=== PATIENT | male | born 1955 | race Two or more races ===

== ENCOUNTER 2022-02-02 06:20 | Day surgery (SDC) | payer OTHER ==
[~2022-02-02] VITALS: Ht 182.9 cm; Wt 76.2 kg
[2022-02-02] MEDS ORDERED: ULTRACET PO (14:29)
== END 2022-02-02 19:00 | disposition home or self-care (01) ==
LOC: CIR.AMB 06:20
PROVIDERS: ATTEND Surgery
DX: C20 Malignant neoplasm of rectum (principal); Z20.822 Contact with and (suspected) exposure to COVID-19; E03.9 Hypothyroidism, unspecified
CPT/HCPCS: 36561; C1788

== ENCOUNTER 2022-08-10 09:00 | Inpatient (IN) | payer OTHER ==
[~2022-08-10] VITALS: Ht 182.9 cm; Wt 68.9 kg
[~2022-08-10 09:00] MED LIST: ULTRACET PO
[2022-08-28] MEDS ORDERED: ULTRACET PO (08:51)
[2022-08-28] MEDS ORDERED: IMODIUM A-D2 MG PO (08:52)
[2022-08-28] MEDS ORDERED: PROTONIX40 MG PO (08:52)
== END 2022-08-28 14:20 | disposition home or self-care (01) | DRG 330 ==
LOC: O/R 08-14 09:00 → SURG 08-14 09:00
PROVIDERS: ADMIT Surgery; ATTEND Surgery
PROC: 0DTP4ZZ Resection of Rectum, Percutaneous Endoscopic Approach (ICD-10-PCS; 2022-08-14)
PROC: 07BC4ZZ Excision of Pelvis Lymphatic, Percutaneous Endoscopic Approach (ICD-10-PCS; 2022-08-14)
PROC: 0D1B4Z4 Bypass Ileum to Cutaneous, Percutaneous Endoscopic Approach (ICD-10-PCS; 2022-08-14)
PROC: 0DTN4ZZ Resection of Sigmoid Colon, Percutaneous Endoscopic Approach (ICD-10-PCS; principal; 2022-08-14 09:30)
PROC: BW21YZZ Computerized Tomography (CT Scan) of Abdomen and Pelvis using Other Contrast (ICD-10-PCS; 2022-08-23)
DX: C20 Malignant neoplasm of rectum (principal); K56.7 Ileus, unspecified; K91.89 Other postprocedural complications and disorders of digestive system; K92.1 Melena; R19.4 Change in bowel habit; Z20.822 Contact with and (suspected) exposure to COVID-19; Z93.2 Ileostomy status

== ENCOUNTER 2023-04-05 08:05 | Outpatient (CLI) | payer OTHER ==
[~2023-04-05 08:05] MED LIST changes: +IMODIUM A-D2 MG PO; +PROTONIX40 MG PO
== END 2023-04-05 08:11 | disposition home or self-care (01) ==
LOC: RX STUDY 08:05
PROVIDERS: ATTEND Surgery
DX: C20 Malignant neoplasm of rectum (principal); R19.4 Change in bowel habit; K92.1 Melena; Z98.0 Intestinal bypass and anastomosis status

== ENCOUNTER 2023-05-30 07:45 | Inpatient (IN) | payer OTHER ==
[~2023-05-30] VITALS: Ht 182.9 cm; Wt 77.1 kg
[2023-06-07] MEDS ORDERED: PEPCID AC20 MG PO (12:07)
[2023-06-07] MEDS ORDERED: TRAM1TAB98 PO (12:07)
== END 2023-06-07 14:03 | disposition home or self-care (01) | DRG 348 ==
LOC: O/R 06-04 05:40 → SURG 06-04 08:45 → SURH 06-04 10:57
PROVIDERS: ADMIT Surgery; ATTEND Surgery
PROC: 02PY33Z Removal of Infusion Device from Great Vessel, Percutaneous Approach (ICD-10-PCS; 2023-06-04)
PROC: 0DBB4ZZ Excision of Ileum, Percutaneous Endoscopic Approach (ICD-10-PCS; principal; 2023-06-04 08:45)
DX: C20 Malignant neoplasm of rectum (principal); K92.1 Melena